=== PATIENT | female | born 1990 | race American Indian/Alaskan Native ===

== ENCOUNTER 2017-08-04 22:24 | Outpatient (CLI) | payer MEDICAID ==
[2017-08-04 22:52] VITALS: BP 112/69
== END 2017-08-04 23:53 | disposition home or self-care (01) ==
LOC: TRG 22:24
PROVIDERS: ATTEND Obstetrics & Gynecology
DX: O47.1 False labor at or after 37 completed weeks of gestation (principal); Z3A.39 39 weeks gestation of pregnancy
CPT/HCPCS: 59025

== ENCOUNTER 2017-08-13 18:32 | Outpatient (CLI) | payer MEDICAID ==
[2017-08-13 18:57] VITALS: BP 117/59
== END 2017-08-13 20:00 | disposition home or self-care (01) ==
LOC: TRG 18:32
PROVIDERS: ATTEND Obstetrics & Gynecology
DX: O47.1 False labor at or after 37 completed weeks of gestation (principal); Z3A.40 40 weeks gestation of pregnancy
CPT/HCPCS: 59025

== ENCOUNTER 2017-08-15 00:17 | Inpatient (IN) | payer MEDICAID ==
[2017-08-15] MEDS ORDERED: LACTATED RINGERS 1,000 ML ONE ×2 (01:05→01:06)
[2017-08-15] MEDS ORDERED: REGLAN IV ONE (01:08)
[2017-08-15] MEDS ORDERED: BICITRA PO ONE (01:08)
[2017-08-15] MEDS ORDERED: PEPCID IV ONE (01:08)
[2017-08-15] MEDS: LACTATED RINGERS 1,000 ML IV SCH ×2 (01:19→02:17)
[2017-08-15 01:38] LABS: Basophils % (Auto) 0.3 % (0.0-1.8); Eosinophils # (Auto) 0.1 K/mm3 (0.0-0.4); Eosinophils % (Auto) 1.4 % (0.0-4.3); Hematocrit 34.8 % (30.3-42.9); Hemoglobin 11.2 gm/dl (10.1-14.3); Lymphocytes # (Auto) 2.2 K/mm3 (1.2-5.4); Mean Corpuscular HGB Conc 32 % (30-34); Mean Corpuscular Hemoglobin 26 pg (28-32); Mean Corpuscular Volume 81 fl (79-97); Monocytes # (Auto) 0.9 K/mm3 (0.0-0.8); Platelet Count 290 K/mm3 (140-440); Red Cell Distribution Width 17.3 % (13.2-15.2)
--- NOTE | 2017-08-15 01:41 | Ultrasound Report ---
FINAL REPORT EXAM: US OB LIMITED HISTORY: presentation TECHNIQUE: A limited OB sonogram was obtained for evaluation of presentation. FINDINGS: The single fetus is in breech presentation. The heart rate is 123 BPM. IMPRESSION: Breech presentation. The heart rate is 123 BPM.
[2017-08-15] MEDS ORDERED: ANCEF/STERILE WATER 2 GM/20 ML 2 GM/20 ML SYRINGE IV NR (02:00)
[2017-08-15] MEDS ORDERED: PITOCin/NS 20 UNIT/1000ML DRIP 20 UNITS/1,000 ML BAG IV SCH ×2 (02:00→05:44)
[2017-08-15] MEDS ORDERED: WATER FOR IRRIG STERILE IR ONE (03:00)
[2017-08-15] MEDS ORDERED: MORPHINE ONE (03:00)
[2017-08-15] MEDS ORDERED: NACL 0.9% IR ONE (03:00)
--- NOTE | 2017-08-15 03:06 | History and Physical Report ---
History of Present Illness Date of examination: 08/15/17 Date of admission: 08/15/17 01:13 Chief complaint: I'm in labor History of present illness: Patient is a 27 yeaer old G P who presents for urgent due to active labor at term in the breech presentation. Patient was examined yesterday and was closed. Today she presents and is 3 cm dilated. Past History Past Medical History: no pertinent history Past Surgical History: no surgical history Social history: single - Obstetrical History Expected Date of Delivery: 08/18/17 Actual Gestation: 39 Week(s) 4 Day(s) : 2 Para: 1 Number of Living Children: 1 Medications and Allergies Allergies Allergy/AdvReac Type Severity Reaction Status Date / Time No Known Allergies Allergy Verified 08/15/17 01:12 Home Medications Medication Instructions Recorded Confirmed Last Taken Type No Known Home Medications [No 08/04/17 08/04/17 Unknown History Reported Home Medications] Active Meds: Active Medications Lactated Ringer's (Lactated Ringers) 1,000 mls @ 2,250 mls/hr IV PREOP MARSHA Stop: 08/16/17 02:27 Last Admin: 08/15/17 02:17 Dose: 2,250 mls/hr Oxytocin/Sodium Chloride (Pitocin/Ns 20 Unit/1000ml Drip) 20 units in 1,000 mls @ 0 mls/hr IV TITR MARSHA Review of Systems All systems: negative Constitutional: fatigue Gastrointestinal: abdominal pain Genitourinary: contractions - Vital Signs Vital signs: Vital Signs Pulse BP 90 124/62 08/15/17 00:39 08/15/17 00:39 Temp Pulse Resp BP Pulse Ox 90 124/62 08/15/17 00:39 08/15/17 00:39 - Physical Exam Breasts: Cardiovascular: Regular rate, Normal S1, Normal S2 Lungs: Positive: Clear to auscultation, Normal air movement Abdomen: Positive: normal appearance, soft, normal bowel sounds. Negative: distention, tenderness Genitourinary (Female): Positive: normal external genitalia, normal perenium Vulva: both: normal Vagina: Positive: normal moisture. Negative: discharge Cervix: Negative: lesion, discharge Uterus: Positive: normal size, normal contour Adnexa: both: normal Anus/Rectum: Positive: normal perianal skin, heme negative. Negative: rectal mass, hemorrhoids Extremities: Deep Tendon Reflex Grade: Normal +2 - Obstetrical Cervical Dilatation: 3 Cervical Effacement Percentage: 80 station: -2 Uterine Contraction Pattern: Regular Uterine Tone Measurement Phase: Contraction Uterine Contraction Intensity: Moderate Results Result Diagrams: 08/15/17 00:00 Abnormal lab results 08/15/17 Range/Units 00:00 MCH 26 L (28-32) pg RDW 17.3 H (13.2-15.2) % Butler % (Auto) 10.0 H (0.0-7.3) % Butler # 0.9 H (0.0-0.8) K/mm3 All other labs normal. Assessment and Plan IUP at 39.4 weeks in active labor with known breech presentation. Admit to L& d. Plan for primary .
[2017-08-15] MEDS ORDERED: NARCAN 0.4 MG/1 ML ONE ×2 (03:51→08:01)
--- NOTE | 2017-08-15 04:50 | Procedure Note ---
OB Delivery Note - Delivery Date of Delivery: 08/15/17 Surgeon: EDELMIRA SANTIAGO Estimated blood loss: other (800cc) - Section Preop diagnosis: breech Postop diagnosis: same section procedure: primary low transverse Disposition: PACU Complications: none Narrative: see op report - A at 1 minute: 8 at 5 minutes: 8 Gender: Female (7 pounds 5 ounces)
[2017-08-15] MEDS ORDERED: PHENERGAN PR PRN (04:52)
[2017-08-15] MEDS ORDERED: ZOFRAN IV PRN ×2 (04:52→05:44)
[2017-08-15] MEDS ORDERED: PHENERGAN PO PRN (04:52)
[2017-08-15] MEDS ORDERED: NARCAN 0.4 MG/1 ML IV PRN ×2 (04:52→05:44)
--- NOTE | 2017-08-15 04:52 | Post Anesthesia Evaluation ---
- Post Anesthesia Evaluation Patient Participated: Yes Airway Patent: Yes Stable Respiratory Function: Yes Nausea/Vomiting: No Temp > 96.8F: Yes Pain Manageable: Yes Adequeate Hydration: Yes Anesthesia Complications: No
--- NOTE | 2017-08-15 04:52 | Anesthesia Consultation ---
Anesthesia Consult and Med Hx Date of service: 08/15/17 - Airway Anesthetic Teeth Evaluation: Good ROM Head & Neck: Adequate Mental/Hyoid Distance: Adequate Mallampati Class: Class II Intubation Access Assessment: Good - Pulmonary Exam CTA: Yes - Cardiac Exam Cardiac Exam: No Murmur - Pre-Operative Health Status ASA Pre-Surgery Classification: ASA2 Proposed Anesthetic Plan: Spinal - Pulmonary Hx Asthma: No - Cardiovascular System Hx Hypertension: No - Central Nervous System Hx Seizures: No Hx Psychiatric Problems: No - Endocrine Hx Renal Disease: No Hx Hypothyroidism: No Hx Hyperthyroidism: No - Hematic Hx Anemia: No Hx Sickle Cell Disease: No - Other Systems Hx Alcohol Use: No
[2017-08-15] MEDS ORDERED: fentaNYL-BUPIV 2 MCG/ML-0.125% 200 MCG/100 ML BAG EPIDURAL SCH (05:00)
[2017-08-15] MEDS ORDERED: SODIUM CHLORIDE FLUSH SYRINGE 10 ML IV PRN ×2 (05:00→05:44)
--- NOTE | 2017-08-15 05:02 | Operative Report ---
Operative Report Operative Report: The operative report for patient Renetta Ritter Date of service 08/15/2017 Preoperative diagnosis: Intrauterine at 39 and 4/7 weeks 2. Breech presentation Postoperative diagnosis: Same with footling breech presentation Procedure: Primary low transverse section Surgeon: Dr. Rut Rodrigues EBL: 800 mL Urine output: 200 mL IV fluids: 1500 mL Findings: Viable female in the double footling breech position. Weight 7 lbs. 5 oz. 3316 g Apgars 8and 8. Otherwise normal pelvic anatomy Specimens: None Complications: None Indications: Ms. Ritter is a 27-year-old 2 para 1 female who presented to labor and delivery with complaint of contractions every 3 minutes. Upon assessment she was found to be 3 cm dilated and actively prachi. The patient was originally scheduled for on August 16 however due to the fact that she is in labor tonight we'll proceed with the at this time. Procedure: The patient was admitted to the OR with IV running and in place. She was properly identified as herself. She was given spinal anesthesia without difficulty in the OR. She was placed in the dorsal supine position with a leftward tilt. A Santiago catheter was inserted. She was then prepped and draped in the normal sterile fashion. An Allis test was used to confirm adequate anesthesia. Once confirmed, the incision was made with the scalpel and carried to the underlying fascia using the scalpel and the Bovie. The fascia was incised in the midline and incision was extended bilaterally using the curved Marx scissors. The fascia was then dissected from the underlying rectus muscles in a series of sharp and blunt dissection using the Marx scissors. Muscles were in the in the midline sharply using Metzenbaum scissors and the peritoneum was entered into bluntly using the surgeon's fingers. A bladder blade was then placed into the incision to protect the bladder. Following this the bladder flap was created. Hysterotomy incision was then made in the scalpel. Upon uterine entry, the amniotic sac was ruptured for clear fluid. The infant was then delivered by her presenting part which were her feet, followed by her legs and buttocks followed by her torso, and then shoulders and finally her head. Her mouth and nose were suctioned on the field. The cord was clamped and cut and he was handed to the waiting NICU personnel. The uterus was then exteriorized and cleared of all clots and debris. The hysterotomy incision was then closed in a running locked fashion using 0 Vicryl. The abdomen was then copiously irrigated with warm normal saline. Following this the uterus was replaced into the abdominal cavity. At this point the muscles were reapproximated in the midline using individual sutures of 0 Vicryl. Following this the fascia was closed in a running fashion using 0 Vicryl. Tissue was then copiously irrigated. A retention suture was placed in the subcuticular fat. Skin was closed in a running fashion using 3-0 Monocryl. The sponge lap needle and instrument counts were correct 2. The patient tolerated the procedure well. She was taken to recovery in stable condition.
[2017-08-15] MEDS ORDERED: MILK OF MAGNESIA PO PRN (05:44)
[2017-08-15] MEDS ORDERED: TORADOL IV PRN (05:44)
[2017-08-15] MEDS ORDERED: PERCOCET 5/325 PO PRN (05:44)
[2017-08-15] MEDS ORDERED: TUCKS PAD TP PRN (05:44)
[2017-08-15] MEDS ORDERED: MORPHINE IV PRN (05:44)
[2017-08-15] MEDS ORDERED: MYLICON PO PRN (05:44)
[2017-08-15] MEDS ORDERED: LANSINOH TP PRN (05:44)
[2017-08-15] MEDS: D5LR 1,000 ML IV SCH ×2 (10:15→18:13)
[2017-08-15 17:57] LABS: Hematocrit 33.6 % (30.3-42.9); Hemoglobin 10.8 gm/dl (10.1-14.3)
[2017-08-15] MEDS: BENADRYL PO PRN (20:40)
[2017-08-16] MEDS ORDERED: BOOSTRIX IM ONE ×2 (06:00→20:15)
[2017-08-16] MEDS: PRENATAL VITAMIN PO SCH (11:09)
[2017-08-16] MEDS: MOTRIN PO PRN (14:14)
[2017-08-17] MEDS: MOTRIN PO PRN ×2 (02:22→16:45)
[2017-08-17] MEDS: BENADRYL PO PRN (02:22)
[2017-08-17] MEDS: PRENATAL VITAMIN PO SCH (11:25)
--- NOTE | 2017-08-17 11:45 | Progress Note ---
Assessment and Plan POD 2 s/p primary ltcs for breech. Patient is recovering well. Patient may want to go home on today. Subjective - Subjective Date of service: 08/17/17 Interval history: Patient is a 27 yeaer old G P who presents for urgent due to active labor at term in the breech presentation. Patient was examined yesterday and was closed. Today she presents and is 3 cm dilated. Patient reports: appetite normal, voiding normally, pain well controlled, ambulating normally Rolla: doing well Objective - Vital Signs Latest vital signs: Vital Signs Temp Pulse Resp BP 08/17/17 00:00 98.6 F 74 16 101/69 08/16/17 16:10 98.4 F 113 H 22 105/52 - Exam Breasts: Present: normal Cardiovascular: Present: Regular rate, Normal S1, Normal S2 Lungs: Present: Clear to auscultation, Normal air movement Abdomen: Present: normal appearance, soft, normal bowel sounds Uterus: Present: normal, firm, fundal height below umbilicus Extremities: Present: normal Incision: Present: normal, dry, intact
--- NOTE | 2017-08-17 17:52 | Discharge Summary ---
Providers - Providers Date of Admission: 08/15/17 01:13 Date of discharge: 08/17/17 Attending physician: EDELMIRA SANTIAGO Primary care physician: EDELMIRA SANTIAGO Hospitalization Reason for admission: active labor Delivery: Procedure: primary low transverse Procedure details: see op report Episiotomy: none Laceration: none Incision: normal, dry, intact complications: none Discharge diagnosis: IUP at term delivered Julian baby: female Hospital course: unremarkable Condition at discharge: Good Disposition: DC-01 TO HOME OR SELFCARE Plan - Discharge Medications Prescriptions: Docusate Sodium [Colace] 100 mg PO BID PRN #60 capsule PRN Reason: Constipation Ibuprofen [Motrin] 800 mg PO Q8HR PRN #40 tablet PRN Reason: Pain Oxycodone HCl/Acetaminophen [Percocet 7.5/325 mg] 1 each PO Q6HR PRN #50 tablet PRN Reason: Pain - Provider Discharge Summary Activity: routine, no sex for 6 weeks, no heavy lifting 4 weeks, no strenuous exercise Diet: routine Instructions: routine Additional instructions: [] Smoking cessation referral if applicable(refer to patient education folder for contact #) [] Refer to [facility] Booklet Call your doctor immediately for: * Fever > 100.5 * Heavy vaginal bleeding ( >1 pad per hour) * Severe persistent headache * Shortness of breath * Reddened, hot, painful area to leg or breast * Drainage or odor from incision. * Keep incision clean and dry at all times and follow doctor's instructions regarding bathing/showering - Follow up plan Follow up: EDELMIRA SANTIAGO MD [Primary Care Provider] - 14 Days Forms: [facility] Discharge Summary
[2017-08-17 20:01] VITALS: BP 114/54
== END 2017-08-17 19:06 | disposition home or self-care (01) | DRG 765 ==
LOC: TRG 00:17 → APU 01:13 → OB 05:43
PROVIDERS: ADMIT Obstetrics & Gynecology; ATTEND Obstetrics & Gynecology
PROC: 10D00Z1 Extraction of Products of Conception, Low, Open Approach (ICD-10-PCS; principal; 2017-08-15)
DX: O32.1XX0 Maternal care for breech presentation, not applicable or unspecified (principal); Z68.42 Body mass index [BMI] 45.0-49.9, adult; O99.214 Obesity complicating childbirth; E66.01 Morbid (severe) obesity due to excess calories; Z3A.39 39 weeks gestation of pregnancy; Z37.0 Single live birth
CPT/HCPCS: 36415; 76815; 85014; 85018; 85025; 86850; 86900; 86901; 90471; 90715; 99211; G0463; J0690; J2270; J2310; J2590; J2765; J7120; J7121